=== PATIENT | female | born 1965 | race Hispanic/Latino ===

== ENCOUNTER 2016-12-06 14:31 | Emergency (ER) | payer SELFPAY ==
[2016-12-06 14:57] VITALS: BP 117/69; PULSE 69; RESP 18; TEMP 98; O2SAT 100
--- NOTE | 2016-12-06 16:22 | RAD ---
PROCEDURE: Right ankle HISTORY: lat mal pain COMPARISON: None. FINDINGS: BONES: Note made of a very tiny corticated bony density within the soft tissues subjacent to the posterior malleolus. This could represent some old posttraumatic sequela however possibility of a very tiny avulsion fracture cannot be completely excluded JOINTS: Normal. No dislocation. SOFT TISSUES: Minor lateral soft tissue swelling OTHER FINDINGS: None. IMPRESSION: Note made of a very tiny corticated bony density within the soft tissues subjacent to the posterior malleolus. This could represent some old posttraumatic sequela however possibility of a very tiny avulsion fracture cannot be completely excluded
--- NOTE | 2016-12-06 16:30 | C.PDOC ---
History Of Present Illness 51 yr old female presents to the ER with complaints of pain and swelling to the right lateral ankle, right lateral knee pain and mild right hip pain for the past 10 days. Patient states she was unloading a truck at the time of onset. Patient states the knee pain is worse with any sort of twisting sensation. Patient has a knee brace on, states she is also taking ibuprofen but the pain has not resolved. Patient denies abdominal pain, back pain, weakness or numbness. Time Seen by Provider: 12/06/16 15:26 Chief Complaint (Nursing): Lower Extremity Problem/Injury History Per: Patient History/Exam Limitations: no limitations Onset/Duration Of Symptoms: Days (10) Current Symptoms Are (Timing): Still Present Past Medical History Reviewed: Historical Data, Nursing Documentation, Vital Signs Vital Signs: Last Vital Signs Temp 98.0 F 12/06/16 14:52 Pulse 69 12/06/16 14:52 Resp 18 12/06/16 14:52 BP 117/69 12/06/16 14:52 Pulse Ox 100 12/06/16 23:13 - Medical History PMH: Post Traumatic Stress Disorder Surgical History: Appendectomy, Cholecystectomy Family History: States: No Known Family Hx - Social History Hx Alcohol Use: No Hx Substance Use: No Review Of Systems Except As Marked, All Systems Reviewed And Found Negative. Gastrointestinal: Negative for: Abdominal Pain Musculoskeletal: Positive for: Other ((+) Right lateral knee pain, Right lateral ankle pain and right hip pain. ). Negative for: Back Pain Neurological: Negative for: Weakness, Numbness Physical Exam - Physical Exam Appears: Non-toxic, No Acute Distress Skin: Warm, Dry, No Rash Head: Atraumatic, Normacephalic Oral Mucosa: Moist Extremity: Other (Mild tenderness and swelling to the right lateral malleolus, full ROM at the ankle, full ROM in the right knee. Tender to the right lateral knee and patella. Hip non tender. No swelling or redness. ) Pulses: Left Dorsalis Pedis: Normal, Right Dorsalis Pedis: Normal Neurological/Psych: Oriented x3, Normal Speech, Normal Motor, Normal Sensation, Normal Reflexes ED Course And Treatment O2 Sat by Pulse Oximetry: 100 - Other Rad X-Ray - Right Ankle X-Ray: Viewed By Me, Read By Radiologist Interpretation: PROCEDURE: Right ankle. HISTORY: lat mal pain. COMPARISON: None. FINDINGS: BONES: Note made of a very tiny corticated bony density within the soft tissues subjacent to the posterior malleolus. This could represent some old posttraumatic sequela however possibility of a very tiny avulsion fracture cannot be completely excluded. JOINTS: Normal. No dislocation. SOFT TISSUES: Minor lateral soft tissue swelling. OTHER FINDINGS : None. IMPRESSION: Note made of a very tiny corticated bony density within the soft tissues subjacent to the posterior malleolus. This could represent some old posttraumatic sequela however possibility of a very tiny avulsion fracture cannot be completely excluded X-Ray - Right Knee X-Ray: Viewed By Me, Read By Radiologist Interpretation: PROCEDURE: Right Knee Radiographs. HISTORY: lateral patellar pain. COMPARISON: None. FINDINGS: BONES: No evidence of acute displaced fracture nor dislocation. JOINTS: Joint spaces appear preserved. JOINT EFFUSION: Questionable trace suprapatellar joint effusion. OTHER FINDINGS: None. IMPRESSION: No evidence of acute displaced fracture nor dislocation. Questionable trace suprapatellar joint effusion Medical Decision Making Medical Decision Making: PLAN: * X-Ray - Right Knee, Right Ankle * Toradol IM Disposition Counseled Patient/Family Regarding: Studies Performed, Diagnosis, Need For Followup - Disposition Referrals: [facility] [Outside] Michael De La O III, MD [Staff Provider] - Disposition: HOME/ ROUTINE Disposition Time: 17:36 Condition: GOOD Additional Instructions: Wear knee brace and tarun bandage while awake; keep right foot elevated when possible. No weight bearing for next week. FOllow up with orthopedics as soon as possible; Call joint cutter machine number or orthopedist to make appointment. Ibuprofen 600 mg by mouth every pain (take with food). Instructions: Knee Immobilizer (ED), Avulsion Fracture (ED) Forms: General Discharge Instructions - Clinical Impression Clinical Impression: Strain of right knee, Avulsion fracture of right ankle - PA / MATERIALS ENGINEER / Resident Statement MD/DO has reviewed & agrees with the documentation as recorded. - Scribe Statement The provider has reviewed the documentation as recorded by the Scribe Vandana Pino All medical record entries made by the Scribe were at my direction and personally dictated by me. I have reviewed the chart and agree that the record accurately reflects my personal performance of the history, physical exam, medical decision making, and the department course for this patient. I have also personally directed, reviewed, and agree with the discharge instructions and disposition.
--- NOTE | 2016-12-06 16:49 | RAD ---
PROCEDURE: Right Knee Radiographs. HISTORY: lateral patellar pain COMPARISON: None. FINDINGS: BONES: No evidence of acute displaced fracture nor dislocation. JOINTS: Joint spaces appear preserved. JOINT EFFUSION: Questionable trace suprapatellar joint effusion OTHER FINDINGS: None. IMPRESSION: No evidence of acute displaced fracture nor dislocation. Questionable trace suprapatellar joint effusion
== END 2016-12-06 18:01 | disposition home or self-care (01) ==
LOC: C.ER 14:31
DX: S82.891A Other fracture of right lower leg, initial encounter for closed fracture (principal); S83.91XA Sprain of unspecified site of right knee, initial encounter; X58.XXXA Exposure to other specified factors, initial encounter
CPT/HCPCS: 73562; 73610; 96372; 99284; J1885